=== PATIENT | female | born 1935 | race Caucasian/White ===

== ENCOUNTER 2017-07-01 07:55 | Emergency (ER) | payer MEDICARE, BC ==
[2017-07-01] MEDS ORDERED: Sodium Chloride 0.9% 1,000 ML IV SCH (08:30)
--- NOTE | 2017-07-01 08:37 | EDM.PDOC ---
ED HPI GENERAL MEDICAL PROBLEM - General Chief Complaint: General Stated Complaint: PAIN LOWER STOMACH Time Seen by Provider: 07/01/17 07:55 Source of Information: Reports: Patient, Family History Limitations: Reports: No Limitations - History of Present Illness INITIAL COMMENTS - FREE TEXT/NARRATIVE: 82 years old w came with her son to the ed due to Gastroenteritis for 1 year, now with Right lower quadrant abd. pain for 4 weeks. What ever she eats goes "straight through" No N/V. Pt noticed in the past several weak RLQ abd. pain, which she related to her Gastroenteritis. Denies dysuria. BP 181/50 pulse 55 Temp 36.2 Onset Date: 06/30/17 Onset Time: 07:00 Duration: Day(s):, Intermittent Location: Reports: Abdomen Quality: Reports: Ache, Burning, Dull Severity: Mild Improves with: Reports: Rest Worsens with: Reports: Movement - Related Data Allergies Allergy/AdvReac Type Severity Reaction Status Date / Time meperidine [From Demerol] Allergy Anxiety Verified 07/01/17 08:01 Home Meds: Home Meds Acetaminophen 1,000 mg PO BEDTIME 07/01/17 [History] Aspirin [Ecotrin] 81 mg PO DAILY 07/01/17 [History] Carvedilol 25 mg PO BID 07/01/17 [History] Cholecalciferol (Vitamin D3) [Vitamin D3] 2,000 unit PO DAILY 07/01/17 [History] Hydrochlorothiazide 12.5 mg PO DAILY 07/01/17 [History] Levothyroxine 75 mcg PO ACBREAKFAST 07/01/17 [History] Moexipril [Univasc] 7.5 mg PO ACBREAKFAST 07/01/17 [History] Rosuvastatin [Crestor] 10 mg PO DAILY 07/01/17 [History] metFORMIN [Glucophage] 1,000 mg PO WITHDINNER 07/01/17 [History] sitaGLIPtin Phos/Metformin HCl [Janumet 50-1,000 MG] 1 each PO DAILY 07/01/17 [ History] Past Medical History HEENT History: Reports: Impaired Vision Cardiovascular History: Reports: High Cholesterol, Hypertension, Pacemaker Endocrine/Metabolic History: Reports: Diabetes, Type II, Hypothyroidism Oncologic (Cancer) History: Reports: Breast - Past Surgical History Cardiovascular Surgical History: Reports: AICD Female Surgical History: Reports: Hysterectomy Social & Family History - Tobacco Use Smoking Status *Q: Never Smoker - Recreational Drug Use Recreational Drug Use: No ED ROS GENERAL - Review of Systems Review Of Systems: See Below Constitutional: Reports: No Symptoms HEENT: Reports: No Symptoms Respiratory: Reports: No Symptoms Cardiovascular: Reports: No Symptoms Endocrine: Reports: No Symptoms GI/Abdominal: Reports: Abdominal Pain : Reports: Dysuria Musculoskeletal: Reports: No Symptoms Skin: Reports: No Symptoms Neurological: Reports: No Symptoms Psychiatric: Reports: No Symptoms Hematologic/Lymphatic: Reports: No Symptoms Immunologic: Reports: No Symptoms ED EXAM, GENERAL - Physical Exam Exam: See Below Exam Limited By: No Limitations General Appearance: Alert, WD/WN, Mild Distress, Thin Eye Exam: Bilateral Eye: Normal Inspection Ears: Normal External Exam Ear Exam: Bilateral Ear: Auricle Normal Nose: Normal Inspection, Normal Mucosa Throat/Mouth: Other (dry mucosal membrane) Course - Vital Signs Text/Narrative:: 82 years old w came with her son to the ed due to Gastroenteritis for 1 year, now with Right lower quadrant abd. pain for 4 weeks. What ever she eats goes "straight through" No N/V. Pt noticed in the past several weak RLQ abd. pain, which she related to her Gastroenteritis. Denies dysuria. BP 181/50 pulse 55 Temp 36.2 PE: WNWD WF, very pleasant C/O RLQ abd. pain Labs: Gross hematuria WBC 8.6 HGB 11.6 Na 136 K 4.2 BUN 24 Cr 1.5 GFR 33 Imaging: CT abd/pelvis: 10 mm stone r UVJ with severe hydro and severe perinephritic stranding Impression: Urolithiasis R UVJ with Severe hydronephrosos and perinephritic stranding, gross hematuria. Gastroenteritis Tx: Toradol, Flomax, NS, Zofran 1.12 pm consultation: Dr. Shanks Urologist, [facility]: 1.13.pm Consultation: Dr. Au, Hospitalist: [facility]: accepted for admission Reexam: Improved, pt requested to go by PC with son to [place] Plan: Tranfer to [facility], Last Recorded V/S: Last Vital Signs Temp 36.3 C 07/01/17 09:56 Pulse 70 07/01/17 14:14 Resp 15 07/01/17 14:14 BP 177/53 H 07/01/17 14:14 Pulse Ox 98 07/01/17 14:14 - Orders/Labs/Meds Labs: Laboratory Tests 07/01/17 07/01/17 07/01/17 Range/Units 08:35 08:35 08:35 WBC 8.6 (4.5-12.0) X10-3/uL RBC 4.24 (3.23-5.20) x10(6)uL Hgb 11.6 (11.5-15.5) g/dL Hct 34.9 (30.0-51.3) % MCV 82.3 (80-96) fL MCH 27.4 L (27.7-33.6) pg MCHC 33.3 (32.2-35.4) g/dL RDW 14.7 (11.5-15.5) % Plt Count 165 (125-369) X10(3)uL MPV 8.1 (7.4-10.4) fL Neut % (Auto) 79.6 (46-82) % Lymph % (Auto) 15.8 (13-37) % Billings % (Auto) 3.7 L (4-12) % Eos % (Auto) 1 (1.0-5.0) % Baso % (Auto) 0 (0-2) % Neut # (Auto) 6.8 (1.6-8.3) # Lymph # (Auto) 1.4 (0.6-5.0) # Billings # (Auto) 0.3 (0.0-1.3) # Eos # (Auto) 0.1 (0.0-0.8) # Baso # (Auto) 0.0 (0.0-0.2) # Sodium 136 (135-145) mmol/L Potassium 4.2 (3.5-5.3) mmol/L Chloride 103 (100-110) mmol/L Carbon Dioxide 24 (23-29) mmol/L BUN 24 H (8-23) mg/dL Creatinine 1.5 H (0.6-1.3) mg/dL Est Cr Clr Drug Dosing 22.73 mL/min Estimated GFR (MDRD) 33 L (>60) BUN/Creatinine Ratio 16.0 (9-20) Glucose 221 H (80-116) mg/dL Calcium 9.2 (8.6-10.2) mg/dL NT-Pro-B Natriuret Pep 606 H (5-450) pg/mL TSH, Ultra Sensitive 0.90 (0.4-5.5) nlU/mL Urine Color (YELLOW) Urine Appearance (CLEAR) Urine pH (5.0-6.5) Ur Specific Addison (1.010-1.025) Urine Protein (NEGATIVE) mg/dL Urine Glucose (UA) (NEGATIVE) mg/dL Urine Ketones (NEGATIVE) mg/dL Urine Occult Blood (NEGATIVE) Urine Nitrite (NEGATIVE) Urine Bilirubin (NEGATIVE) Urine Urobilinogen (NEGATIVE) mg/dL Ur Leukocyte Esterase (NEGATIVE) Urine RBC (0) Urine WBC (0) Ur Squamous Epith Cells (NS,R,O) Urine Bacteria (NS) 07/01/17 Range/Units 11:11 WBC (4.5-12.0) X10-3/uL RBC (3.23-5.20) x10(6)uL Hgb (11.5-15.5) g/dL Hct (30.0-51.3) % MCV (80-96) fL MCH (27.7-33.6) pg MCHC (32.2-35.4) g/dL RDW (11.5-15.5) % Plt Count (125-369) X10(3)uL MPV (7.4-10.4) fL Neut % (Auto) (46-82) % Lymph % (Auto) (13-37) % Billings % (Auto) (4-12) % Eos % (Auto) (1.0-5.0) % Baso % (Auto) (0-2) % Neut # (Auto) (1.6-8.3) # Lymph # (Auto) (0.6-5.0) # Billings # (Auto) (0.0-1.3) # Eos # (Auto) (0.0-0.8) # Baso # (Auto) (0.0-0.2) # Sodium (135-145) mmol/L Potassium (3.5-5.3) mmol/L Chloride (100-110) mmol/L Carbon Dioxide (23-29) mmol/L BUN (8-23) mg/dL Creatinine (0.6-1.3) mg/dL Est Cr Clr Drug Dosing mL/min Estimated GFR (MDRD) (>60) BUN/Creatinine Ratio (9-20) Glucose (80-116) mg/dL Calcium (8.6-10.2) mg/dL NT-Pro-B Natriuret Pep (5-450) pg/mL TSH, Ultra Sensitive (0.4-5.5) nlU/mL Urine Color Yellow (YELLOW) Urine Appearance Turbid (CLEAR) Urine pH 6.0 (5.0-6.5) Ur Specific Addison 1.015 (1.010-1.025) Urine Protein Negative (NEGATIVE) mg/dL Urine Glucose (UA) 100 H (NEGATIVE) mg/dL Urine Ketones Negative (NEGATIVE) mg/dL Urine Occult Blood Large H (NEGATIVE) Urine Nitrite Negative (NEGATIVE) Urine Bilirubin Negative (NEGATIVE) Urine Urobilinogen Normal (NEGATIVE) mg/dL Ur Leukocyte Esterase Negative (NEGATIVE) Urine RBC >100 H (0) Urine WBC 0-5 (0) Ur Squamous Epith Cells Few H (NS,R,O) Urine Bacteria Few H (NS) Meds: Medications Discontinued Medications Generic Name Dose Route Start Last Admin Trade Name Freq PRN Reason Stop Dose Admin Sodium Chloride 1,000 mls @ 125 mls/hr 07/01/17 08:30 07/01/17 08:52 Normal Saline IV 125 mls/hr ASDIRECTED DEACON Administration Ketorolac Tromethamine 15 mg 07/01/17 13:07 07/01/17 13:16 Toradol IVPUSH 07/01/17 13:08 15 mg ONETIME ONE Administration Departure - Departure Time of Disposition: 13:26 Disposition: DC/Tfer to [facility] Condition: Fair Clinical Impression: Gastroenteritis Urolithiasis Qualifiers: Urinary calculus location: lower urinary tract Qualified Code(s): N21.9 - Calculus of lower urinary tract, unspecified Hematuria Qualifiers: Hematuria type: gross Qualified Code(s): R31.0 - Gross hematuria - Discharge Information Referrals: Gregg Pinzon MD [Primary Care Provider] - Forms: ED Department Discharge Additional Instructions: Please go directly _-son is driving-to [facility] as instructed, No food or any PO until seen by the Hospitalist.
[2017-07-01] MEDS ORDERED: Ketorolac 30 MG/ML SDV IVPUSH ONE (13:07)
--- NOTE | 2017-07-01 14:46 | CT ---
INDICATION: Abdominal pain. CT ABDOMEN AND PELVIS WITHOUT CONTRAST: Spiral 1.25-mm axial sections were obtained through the abdomen and pelvis without contrast in a patient with hematuria, right lower quadrant pain, and family history of renal calculi. Total Exam DLP = 699.78 mGy-cm. Examination date is 07/01/2017. No comparisons were available. There is evidence of a left mastectomy. The lower lung hart and pleural spaces visualized appeared negative for an active infiltrate or effusion, with minimal fibrosis suggested at the left lung base - lower lobe. Evidence of multiple cardiac leads is noted. The heart did not appear grossly enlarged. No gallstones were demonstrated. There is a calcification in the rajani hepatis of questionable etiology. It does not appear to be related to the ductal system. No definite ductal dilatation was identified. Findings may represent a vascular calcification. There are calcifications noted in the splenic artery, aorta, proximal-most renal arteries, iliac and femoral arteries fairly extensively. In the mid pole of the right kidney, there are two small calculi with a larger calculus in a lower pole calyx on the right, measuring approximately 9 mm. Multiple calculi are noted in the left kidney, one of fairly small size is noted in the upper pole, another tiny in the lower middle pole, and a moderate sized calculus measuring a maximum of approximately 7.5 mm in the anterolateral mid pole of the left kidney, with a small and a tiny calculus and an additional tiny calculus x2 in the lower pole for a total of 8 calculi on the left and 3 calculi on the right. There also appears to be obstructive uropathy on the right with extensive roland-renal fascial thickening and a fluid collection suggesting back flow and severe degree of obstructive uropathy. There are two calculi in the proximal right ureter, one is relatively tiny in size. The more distal obstructive calculus is larger, measuring 8 x 8.9 cm coronally, and 10 x 7.2 mm axially. As mentioned above, the more cranially located calculus in the proximal right ureter is much smaller in size and does not appear to be obstructive. The uterus is absent, compatible with history of its removal. The urinary bladder showed no calculi. There are a few phleboliths in the pelvis. Apparent uterine artery calcifications are seen. No definite evidence of appendicitis was seen, with the appendix measuring approximately 7.7 mm. It is seen on coronal images #44 through #55. In its most distal extent, it appeared normal in caliber to slightly prominent in caliber. However, no roland-appendiceal fat stranding was identified to strongly suggest appendicitis. Its maximum diameter was approximately 8.4 mm. IMPRESSION: 1. Obstructive uropathy appears fairly severe at the proximal right ureter due to an 8 x 8.9 x 10 mm calculus. An additional much smaller calculus is noted more proximally in the ureter and is nonobstructive. 2. 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 3. ASD. 4. Post hysterectomy. 5. Slightly prominent size of the appendix with no definite evidence of appendicitis. 6. Post left mastectomy. 7. Renal cortical thinning and scarring. CT PELVIS: Examination of the pelvis was obtained by CT, as noted above. Fat stranding extending from the right kidney extends into the pelvis due to the rather high degree of obstructive uropathy present on the right, due to a 10 -mm calculus seen in the abdomen. Calcifications are noted in the arteries. The uterus is absent, compatible with history of its removal. Report was called to Dr. Hoyos at 1300 hours, 07/01/2017. [facility] NETWORKRocky
== END 2017-07-01 14:23 | disposition critical access hospital (66) ==
LOC: FB.ED 07:55
DX: N13.2 Hydronephrosis with renal and ureteral calculous obstruction (principal); K52.9 Noninfective gastroenteritis and colitis, unspecified; E10.9 Type 1 diabetes mellitus without complications; I10 Essential (primary) hypertension; Z88.8 Allergy status to other drugs, medicaments and biological substances; Z79.82 Long term (current) use of aspirin; Z79.899 Other long term (current) drug therapy
CPT/HCPCS: 36415; 74176; 80048; 81001; 83880; 84443; 85025; 96361; 96374; 99284; J1885; J7040; 99285

== ENCOUNTER 2020-04-16 09:52 | Emergency (ER) | payer MEDICARE, BC ==
[2020-04-16] MEDS ORDERED: Lidocaine/EPINEPHrine/Tetracaine Soln 5 ML Each TOP ONE (10:34)
--- NOTE | 2020-04-16 11:00 | EDM.PDOC ---
ED HPI GENERAL MEDICAL PROBLEM - General Chief Complaint: General Stated Complaint: TOE NAIL ON R FOOT Time Seen by Provider: 04/16/20 10:40 Source of Information: Reports: Patient History Limitations: Reports: No Limitations - History of Present Illness INITIAL COMMENTS - FREE TEXT/NARRATIVE: Patient presented to the ED because of an avulsed rt great toe nail. She doesn't know how she did it. Right Great toe Pain Score (Numeric/FACES): 4 - Related Data Allergies Allergy/AdvReac Type Severity Reaction Status Date / Time meperidine [From Demerol] Allergy Anxiety Verified 04/16/20 10:39 Home Meds: Home Meds Aspirin [Ecotrin] 81 mg PO DAILY 07/01/17 [History] Cholecalciferol (Vitamin D3) [Vitamin D3] 2,000 unit PO DAILY 07/01/17 [History] Levothyroxine 75 mcg PO ACBREAKFAST 07/01/17 [History] Moexipril [Univasc] 7.5 mg PO ACBREAKFAST 07/01/17 [History] Rosuvastatin [Crestor] 10 mg PO DAILY 07/01/17 [History] carvediloL [Carvedilol] 25 mg PO BID 07/01/17 [History] hydroCHLOROthiazide [Hydrochlorothiazide] 12.5 mg PO DAILY 07/01/17 [History] sitaGLIPtin Phos/Metformin HCl [Janumet 50-1,000 MG] 1 each PO DAILY 07/01/17 [History] Past Medical History HEENT History: Reports: Impaired Vision Cardiovascular History: Reports: High Cholesterol, Hypertension, Pacemaker Endocrine/Metabolic History: Reports: Diabetes, Type II, Hypothyroidism Oncologic (Cancer) History: Reports: Breast - Past Surgical History Cardiovascular Surgical History: Reports: AICD Female Surgical History: Reports: Hysterectomy Social & Family History - Tobacco Use Smoking Status *Q: Never Smoker Second Hand Smoke Exposure: No - Caffeine Use Caffeine Use: Reports: Coffee - Recreational Drug Use Recreational Drug Use: No ED ROS GENERAL - Review of Systems Review Of Systems: See Below Constitutional: Reports: No Symptoms HEENT: Reports: No Symptoms Respiratory: Reports: No Symptoms Cardiovascular: Reports: No Symptoms Endocrine: Reports: No Symptoms GI/Abdominal: Reports: No Symptoms : Reports: No Symptoms Musculoskeletal: Reports: No Symptoms Skin: Reports: No Symptoms ED EXAM, GENERAL - Physical Exam Exam: See Below Exam Limited By: No Limitations General Appearance: Alert, No Apparent Distress Eye Exam: Bilateral Eye: PERRL Nose: Normal Inspection, Normal Mucosa, No Blood Throat/Mouth: Normal Inspection, Normal Lips, Normal Teeth, Normal Gums Head: Atraumatic, Normocephalic Neck: Normal Inspection, Supple, Non-Tender, Full Range of Motion Respiratory/Chest: No Respiratory Distress, Lungs Clear, Normal Breath Sounds Cardiovascular: Normal Peripheral Pulses, Regular Rate, Rhythm, No Edema, No Gallop, No JVD, No Murmur GI/Abdominal: Normal Bowel Sounds, Soft, Non-Tender, No Organomegaly Back Exam: Normal Inspection, Full Range of Motion Extremities: Normal Inspection, Normal Range of Motion, Non-Tender Neurological: Alert, Oriented, CN II-XII Intact, Normal Cognition Psychiatric: Normal Affect Skin Exam: Warm, Other (avulsed rt great toe nail) Course - Vital Signs Text/Narrative:: LET top soln was applied to the rt great toe then the nail was manually removed with a needle lizama and was successful. Tdap Last Recorded V/S: Last Vital Signs Temp 36.6 C 04/16/20 10:39 Pulse 70 04/16/20 10:39 Resp 16 04/16/20 10:39 BP 134/52 L 04/16/20 10:39 Pulse Ox 97 04/16/20 10:39 - Orders/Labs/Meds Meds: Medications Discontinued Medications Generic Name Dose Route Start Last Admin Trade Name Jeronimoq PRN Reason Stop Dose Admin Diphtheria/Tetanus/Acell Pertussis 0.5 ml 04/16/20 11:16 04/16/20 11:18 Adacel IM 04/16/20 11:17 0.5 ml .ONCE ONE Administration Lidocaine/Tetracaine Confirm 04/16/20 10:34 04/16/20 10:35 Let Soln Administered 04/16/20 10:35 5 ml Dose Administration 5 ml TOP .STK-MED ONE Departure - Departure Time of Disposition: 11:15 Disposition: Home, Self-Care 01 Condition: Good Clinical Impression: Status post surgical removal of nail matrix of toe of right foot, Nail avulsion, toe - Discharge Information Instructions: Nail Avulsion Referrals: Gregg Pinzon MD [Primary Care Provider] - Forms: ED Department Discharge Additional Instructions: please read discharge instructions on toe bail removal Air dry your wound( do not cover) when you are inside the house When you're out cover the wound Check your toe daily for any signs of infection: increasing redness, swelling, p ain, pus discharge, fever. Sepsis Event Note (ED) - Evaluation Sepsis Screening Result: No Definite Risk - Focused Exam Vital Signs: Vital Signs Temp Pulse Resp BP Pulse Ox 04/16/20 10:39 36.6 C 70 16 134/52 L 97
[2020-04-16] MEDS ORDERED: Diphtheria,Pertussis(Acell),Tetanus Vaccine 0.5 ML SDV IM ONE (11:16)
== END 2020-04-16 11:30 | disposition home or self-care (01) ==
LOC: FB.ED 09:52
DX: S91.201A Unspecified open wound of right great toe with damage to nail, initial encounter (principal); I10 Essential (primary) hypertension; E78.00 Pure hypercholesterolemia, unspecified; E03.9 Hypothyroidism, unspecified; E11.9 Type 2 diabetes mellitus without complications; Z23 Encounter for immunization; Z88.8 Allergy status to other drugs, medicaments and biological substances; Z79.82 Long term (current) use of aspirin; Z79.899 Other long term (current) drug therapy; X58.XXXA Exposure to other specified factors, initial encounter
CPT/HCPCS: 11730; 90471; 90715; 99283; A9270